=== PATIENT | female | born 2000 | race Caucasian/White ===

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

== ENCOUNTER → 2019-06-05 | Outpatient (CLI) | payer OTHER ==
[~2019-06-05] MED LIST: LEVSOD75 PO
[2019-06-08 03:07] LABS: CHLAMYDIA TRACHOMATIS, NAA Negative (Negative); NEISSERIA GONORRHOEAE, NAA Negative (Negative)
== END | disposition home or self-care (01) ==
LOC: LAB 18:00 → LAB SHORT 18:00
PROVIDERS: Family Medicine
DX: Z11.3 Encounter for screening for infections with a predominantly sexual mode of transmission (principal)
CPT/HCPCS: 87491; 87591

== ENCOUNTER 2020-12-14 10:54 | Emergency (ER) | payer OTHER ==
[~2020-12-14] VITALS: Ht 175.3 cm; Wt 108.9 kg
== END 2020-12-14 12:24 | disposition home or self-care (01) ==
LOC: ER 10:54
DX: R07.2 Precordial pain (principal); Z20.822 Contact with and (suspected) exposure to COVID-19
CPT/HCPCS: 99282

== ENCOUNTER 2022-07-06 02:31 | Emergency (ER) | payer OTHER ==
[~2022-07-06] VITALS: Ht 175.3 cm; Wt 131.5 kg
[2022-07-06] MEDS ORDERED: Amoxicillin875 MG PO (02:58)
== END 2022-07-06 03:11 | disposition home or self-care (01) ==
LOC: ER 02:31
DX: J02.9 Acute pharyngitis, unspecified (principal); J45.909 Unspecified asthma, uncomplicated; Z79.899 Other long term (current) drug therapy
CPT/HCPCS: A9270; J1100